=== PATIENT | female | born 1995 | race Caucasian/White ===

== ENCOUNTER 2018-05-09 21:49 | Emergency (ER) | payer SELFPAY, OTHER ==
[2018-05-10] MEDS ORDERED: LIDOCAINE 1% (MDV) 10 ML INJ INJ (03:41)
[2018-05-10] MEDS: LIDOCAINE 1% (MDV) 50 ML INJ INJ (04:46)
[2018-05-10] MEDS: HYDROCODONE/APAP (5/325) TAB PO (04:49)
== END 2018-05-10 05:16 | disposition home or self-care (01) ==
LOC: FTE 21:49
DX: N75.0 Cyst of Bartholin's gland (principal)
CPT/HCPCS: 56420; 99283-25